=== PATIENT | female | born 1985 | race Caucasian/White ===

== ENCOUNTER 2021-10-04 09:30 | Outpatient (CLI) | payer MEDICAID, SELFPAY ==
[~2021-10-04] VITALS: Ht 154.9 cm; Wt 68.5 kg
== END 2021-10-04 19:30 | disposition home or self-care (01) ==
LOC: SLB 09:30 → EDSTATUS 10-07 07:30
PROVIDERS: ATTEND Internal Medicine Gastroenterology
DX: U07.1 COVID-19 (principal); Z01.812 Encounter for preprocedural laboratory examination; K62.89 Other specified diseases of anus and rectum; R19.4 Change in bowel habit; Z20.822 Contact with and (suspected) exposure to COVID-19
CPT/HCPCS: C9803; U0003

== ENCOUNTER 2021-11-25 05:10 | Day surgery (SDC) | payer MEDICAID, SELFPAY ==
[~2021-11-25] VITALS: Ht 154.9 cm; Wt 68.0 kg
[2021-11-25 06:00] LABS: HCG,QUAL RESULT NEGATIVE (NEGATIVE)
[2021-11-25] MEDS ORDERED: MEPERIDINE 100 MG INJ. 100 MG/ML VIAL ONE (07:08)
[2021-11-25] MEDS ORDERED: SIMETHICONE 40 MG/0.6 ML ML ONE (07:08)
[2021-11-25] MEDS ORDERED: MIDAZOLAM HCL 5 MG/5 ML VIAL ONE (07:09)
[2021-11-25 11:44] VITALS: BP_SYST 104
== END 2021-11-25 09:05 | disposition home or self-care (01) ==
LOC: SMU 05:10 → SDS 05:10
PROVIDERS: ATTEND Internal Medicine Gastroenterology
DX: R19.4 Change in bowel habit (principal); K57.30 Diverticulosis of large intestine without perforation or abscess without bleeding; K64.9 Unspecified hemorrhoids; K62.89 Other specified diseases of anus and rectum; Z20.822 Contact with and (suspected) exposure to COVID-19; Z79.899 Other long term (current) drug therapy
CPT/HCPCS: 36415; 45380; 84703; 87426; 88305; G0378; J2175; J2250; U0003